=== PATIENT | female | born 1990 | race African-American/Black ===

== ENCOUNTER 2021-12-27 12:34 | Emergency (ER) | payer BC ==
[2021-12-27 12:58] VITALS: BP 120/83; PULSE 88; BMI 38.0
[2021-12-27] MEDS ORDERED: SODIUM CHLORIDE 1,000 ML IV STA (13:45)
[2021-12-27] MEDS ORDERED: ACETAMINOPHEN 1000 MG/100 ML BAG IVPB ONE (13:45)
[2021-12-27] MEDS ORDERED: ACETAMINOPHEN INJECTION 100 ML IVPB ONE (13:46)
[2021-12-27 14:48] LABS: HCG,QUALITATIVE URINE Positive
[2021-12-27 14:49] LABS: URINE APPEARANCE CLEAR; URINE BILIRUBIN NEGATIVE (NEGATIVE); URINE COLOR YELLOW; URINE GLUCOSE (UA) NEGATIVE (NEGATIVE); URINE KETONE 1+ (NEGATIVE); URINE LEUK ESTERASE NEGATIVE (NEGATIVE); URINE NITRITE NEGATIVE (NEGATIVE); URINE PROTEIN TRACE (NEGATIVE)
[2021-12-27 14:52] LABS: EOS % 0.9 % (0-4.5); HEMATOCRIT 32.1 % (32.4-45.2); HEMOGLOBIN 10.9 GM/dL (10.7-15.3); LYMPH % 11.7 % (8-40); MCH 28.7 pg (25.7-33.7); MCHC 33.8 g/dl (32.0-36.0); MEAN CELL VOLUME 85.1 fl (80-96); MEAN PLT VOLUME 9.1 fl (7.5-11.1); MONO % 4.7 % (3.8-10.2); NEUT % 81.7 % (42.8-82.8); PLATELET COUNT 219 10^3/uL (134-434); RBC 3.78 M/mm3 (3.60-5.2); WHITE BLOOD COUNT 7.9 K/mm3 (4.0-10.0)
[2021-12-27 15:09] LABS: CALCIUM 8.9 mg/dL (8.5-10.1)
[2021-12-27 15:10] LABS: ALBUMIN 3.1 g/dl (3.4-5.0)
[2021-12-27 15:13] LABS: CREATININE 0.4 mg/dL (0.55-1.3)
[2021-12-27 15:14] LABS: BILIRUBIN,TOTAL 0.2 mg/dL (0.2-1); TOT PROT 6.7 g/dl (6.4-8.2)
== END 2021-12-27 16:37 | disposition home or self-care (01) ==
LOC: JER 12:34
PROC: 3E0333Z Introduction of Anti-inflammatory into Peripheral Vein, Percutaneous Approach (ICD-10-PCS; principal; 2021-12-27)
PROC: 3E0337Z Introduction of Electrolytic and Water Balance Substance into Peripheral Vein, Percutaneous Approach (ICD-10-PCS; 2021-12-27)
DX: M54.50 Low back pain, unspecified (principal)
CPT/HCPCS: 36415; 76817-TC; 80053; 81003; 83690; 84702; 84703; 85025; 86850; 86900; 86901; 87086; 99284-25

== ENCOUNTER 2022-03-20 13:40 | Inpatient (IN) | payer BC ==
[2022-03-20] MEDS ORDERED: ONDANSETRON 4 MG/2 ML VIAL ONE (15:07)
[2022-03-20] MEDS ORDERED: ELECTROLYTE-148 SOLN 500 ML IV ONE (15:18)
[2022-03-20] MEDS ORDERED: ONDANSETRON 4 MG/2 ML VIAL IVPB ONE (15:19)
[2022-03-20] MEDS ORDERED: ELECTROLYTE-148 SOLN 1,000 ML IV SCH (15:30)
[2022-03-20 15:40] LABS: EPI CELLS 29 /uL (0-25.1); HYALINE CASTS 2 /uL (0-3.1); URINE APPEARANCE CLEAR; URINE BACTERIA 2092 /uL (0-1359); URINE BILIRUBIN NEGATIVE (NEGATIVE); URINE COLOR YELLOW; URINE GLUCOSE (UA) NEGATIVE (NEGATIVE); URINE KETONE NEGATIVE (NEGATIVE); URINE LEUK ESTERASE 1+ (NEGATIVE); URINE NITRITE NEGATIVE (NEGATIVE); URINE PROTEIN NEGATIVE (NEGATIVE); URINE RBC 6 /uL (0-23.9); URINE WBC 32 /uL (0-25.8)
[2022-03-20 15:59] LABS: BASO % 0.1 % (0-2.0); EOS % 1.4 % (0-4.5); HEMOGLOBIN 10.1 GM/dL (10.7-15.3); MCH 27.9 pg (25.7-33.7); MCHC 34.8 g/dl (32.0-36.0); MEAN CELL VOLUME 80.3 fl (80-96); MEAN PLT VOLUME 9.2 fl (7.5-11.1); MONO % 6.9 % (3.8-10.2); NEUT % 77.6 % (42.8-82.8); PLATELET COUNT 182 10^3/uL (134-434); RBC 3.61 M/mm3 (3.60-5.2); RDW 16.4 % (11.6-15.6)
[2022-03-20 16:22] LABS: BLOOD UREA NITROGEN 7.6 mg/dL (7-18); CALCIUM 8.8 mg/dL (8.5-10.1)
[2022-03-20 16:23] LABS: ALBUMIN 2.7 g/dl (3.4-5.0)
[2022-03-20 16:25] LABS: CREATININE 0.4 mg/dL (0.55-1.3)
[2022-03-20 16:27] LABS: BILIRUBIN,TOTAL 0.2 mg/dL (0.2-1); TOT PROT 5.9 g/dl (6.4-8.2)
[2022-03-20] MEDS: ELECTROLYTE-148 SOLN 1,000 ML IV SCH (19:15)
[2022-03-20] MEDS ORDERED: ACETAMINOPHEN INJECTION 100 ML IVPB ONE (20:03)
[2022-03-20] MEDS: ACETAMINOPHEN 1000 MG/100 ML BAG IVPB PRN (20:05)
[2022-03-20 20:42] VITALS: BMI 39.1
[2022-03-20] MEDS ORDERED: BETAMET ACET/BETAMET NA PH 30 MG/5 ML VIAL ONE (20:44)
[2022-03-20 20:47] LABS: INR 1.06 (0.83-1.09); PROTHROMBIN TIME (PATIENT) 12.2 SEC (9.7-13.0)
[2022-03-20] MEDS: BETAMET ACET/BETAMET NA PH 30 MG/5 ML VIAL IM SCH (20:53)
[2022-03-20] MEDS ORDERED: IBUPROFEN 600 MG TABLET (FP) PO ONE ×2 (22:10→22:15)
[2022-03-20 22:32] LABS: HEPATITIS B SURFACE AG MATERN NON-REACTIVE (NONREACTIVE)
[2022-03-20 22:47] LABS: HIV INTERPRETATION NEGATIVE (NEGATIVE)
[2022-03-21] MEDS: ELECTROLYTE-148 SOLN 1,000 ML IV SCH (03:10)
[2022-03-21] MEDS ORDERED: ACETAMINOPHEN INJECTION 100 ML IVPB ONE (05:42)
[2022-03-21] MEDS: ACETAMINOPHEN 1000 MG/100 ML BAG IVPB PRN ×2 (05:45→19:05)
[2022-03-21 08:05] LABS: HEMATOCRIT 28.4 % (32.4-45.2); HEMOGLOBIN 9.7 GM/dL (10.7-15.3); MCH 27.4 pg (25.7-33.7); MCHC 34.2 g/dl (32.0-36.0); MEAN CELL VOLUME 80.1 fl (80-96); PLATELET COUNT 189 10^3/uL (134-434); RBC 3.54 M/mm3 (3.60-5.2); RDW 16.1 % (11.6-15.6); WHITE BLOOD COUNT 7.8 K/mm3 (4.0-10.0)
[2022-03-21 08:22] LABS: CALCIUM 8.5 mg/dL (8.5-10.1)
[2022-03-21 08:23] LABS: ALBUMIN 2.6 g/dl (3.4-5.0); BLOOD UREA NITROGEN 6.5 mg/dL (7-18)
[2022-03-21 08:26] LABS: CREATININE 0.4 mg/dL (0.55-1.3)
[2022-03-21 08:28] LABS: BILIRUBIN,TOTAL 0.3 mg/dL (0.2-1); TOT PROT 5.8 g/dl (6.4-8.2)
[2022-03-21 09:20] LABS: ANISOCYTOSIS 0; HELMET CELLS 0; HOWELL-JOLLY BODIES 0; MACROCYTOSIS 0; OVALOCYTE 0; ROULEAU 0; SICKELED CELLS 0; TARGET CELLS 0; TEAR DROP CELLS 0; TOXIC GRANULATION 0
[2022-03-21] MEDS: BETAMET ACET/BETAMET NA PH 30 MG/5 ML VIAL IM SCH (20:55)
[2022-03-21 23:53] VITALS: RESP 20
[2022-03-22 06:20] VITALS: BP 112/64; PULSE 81; TEMP 97.8
== END 2022-03-22 10:10 | disposition home or self-care (01) | DRG 833 ==
LOC: JDEL 13:40 → JLDR 19:40 → J3W 03-21 09:15 → JLDR 03-21 23:18
PROVIDERS: ADMIT Obstetrics & Gynecology; ATTEND Obstetrics & Gynecology
DX: O26.872 Cervical shortening, second trimester (principal); O34.12 Maternal care for benign tumor of corpus uteri, second trimester; Z3A.26 26 weeks gestation of pregnancy
CPT/HCPCS: 36415; 74181-TC; 76815; 76817-TC; 80053; 81003; 82150; 83690; 85025; 85610; 85730; 86762; 86780; 86850; 86900; 86901; 87077; 87086; 87340; 87389; 96372; C9803-CS; G0378; U0003; U0005